=== PATIENT | male | born 1930 | race Caucasian/White ===

== ENCOUNTER 2016-10-29 14:19 | Outpatient (CLI) | payer MEDICARE, OTHER ==
[2016-10-29 14:55] LABS: #Basophils 0.1 thou/uL (0.0-0.2); #Eosinphils 0.2 thou/uL (0.0-0.7); #Lymphocytes 1.9 thou/uL (1.20-3.40); #Monocytes 0.7 thou/uL (0.11-0.59); #Neutrophils 5.2 thou/uL (1.40-6.50); %Basophils 1.1 % (0.0-1.0); %Eosinophils 2.5 % (0.0-10.0); %Lymphocytes 23.2 % (21.0-51.0); %Monocytes 8.9 % (0.0-10.0); %Neutrophils 64.3 % (42.0-75.0); Hemoglobin 14.8 g/dL (14.0-18.0); Mean Corpuscular HGB CONC 33.2 g/dL (32.0-36.0); Mean Corpuscular Hemoglobin 33.5 pg (27.0-31.0); Mean Corpuscular Volume 101.1 fl (80.0-94.0); Mean Platelet Volume 8.1 fL (7.4-10.4); Platelet Count 209 thou/uL (130-400); RBC Distribution Width 11.9 % (11.5-14.5); Red Blood Cell (RBC) Count 4.42 mill/uL (4.70-6.10); White Blood Cell (WBC) Count 8.1 thou/uL (4.8-10.8)
[2016-10-29 15:12] LABS: Anion Gap 15 mmol/L (10-20); BUN (Urea Nitrogen) 26 mg/dL (8.4-25.7); Calc. Creatinine Clearance 0 mL/min (70-130); Calcium 9.2 mg/dL (7.8-10.44); Carbon Dioxide 20 mmol/L (23-31); Chloride 110 mmol/L (98-107); Estimated GFR-MDRD 34; Glucose 112 mg/dL (83-110); Potassium 4.7 mmol/L (3.5-5.1); Sodium 140 mmol/L (136-145)
== END 2016-10-29 14:20 | disposition home or self-care (01) ==
LOC: MADLAB 14:19
PROVIDERS: ATTEND Internal Medicine Cardiovascular Disease
DX: I48.0 Paroxysmal atrial fibrillation (principal); R53.1 Weakness
CPT/HCPCS: 36415; 80048; 84443; 85025

== ENCOUNTER 2016-11-13 15:49 | Outpatient (CLI) | payer MEDICARE, OTHER ==
[2016-11-13 16:20] LABS: Clarity Hazy (Clear)
[2016-11-13 16:21] LABS: Bilirubin Negative (Negative); Blood, Urine Large (Negative); Glucose, Urine (Dipstick) Negative (Negative); Leukocyte Moderate (Negative); Nitrite Positive (Negative); Protein, Urine (Dipstick) Trace mg/dL (Neg-Trace); pH, Urine 6.5 (5.0-9.0)
[2016-11-13 16:26] LABS: Bacteria/HPF Rare-Few HPF (None Seen); WBC/HPF 21-50 HPF (0-3)
[2016-11-13 16:27] LABS: Hyaline Casts/LPF 0-3 HYALINE CAST LPF (0-3 Hyaline)
== END 2016-11-13 15:50 | disposition home or self-care (01) ==
LOC: MADLABBHPM 15:49
PROVIDERS: ATTEND Family Medicine
DX: R35.0 Frequency of micturition (principal)
CPT/HCPCS: 81001; 87077; 87086; 87186

== ENCOUNTER 2016-11-26 12:11 | Outpatient (CLI) | payer MEDICARE, OTHER ==
--- NOTE | 2016-11-26 16:15 | ULT ---
BILATERAL RENAL ULTRASOUND 11/26/16 HISTORY: Chronic renal disease. Recent infection. FINDINGS: The right kidney measures 10.5 cm in length and the left kidney measures 9 cm in length. There is a 1.2 x 0.9 x 1.6 cm cyst in the left kidney. No hydronephrosis is seen on either side. The urinary bladder is not satisfactorily distended on the prevoid images with a volume of 11.4 mL a nd a postvoid residual of 6 mL. IMPRESSION: Left renal cyst. POS: [facility]
== END 2016-11-26 12:12 | disposition home or self-care (01) ==
LOC: MADULT 12:11
PROVIDERS: ATTEND Internal Medicine Nephrology
DX: N18.3 Chronic kidney disease, stage 3 (moderate) (principal); N28.1 Cyst of kidney, acquired
CPT/HCPCS: 76770

== ENCOUNTER 2017-04-18 14:09 | Outpatient (CLI) | payer MEDICARE, OTHER ==
--- NOTE | 2017-04-18 15:56 | RAD ---
PA AND LATERAL CHEST: HISTORY: Cough. COMPARISON: 06/27/15 study. FINDINGS: Heart size is within normal limits. There are atherosclerotic changes of the aorta. The lungs show changes suggesting an element of COPD. Old rib fractures are present. IMPRESSION: Chronic lung change. Stable chest. POS: [facility]
== END 2017-04-18 14:10 | disposition home or self-care (01) ==
LOC: MADRAD 14:09
PROVIDERS: ATTEND Family Medicine
DX: R05 Cough (principal)
CPT/HCPCS: 71020

== ENCOUNTER 2017-05-29 15:31 | Emergency (ER) | payer MEDICARE, OTHER ==
--- NOTE | 2017-05-29 16:23 | RAD ---
FRONTAL RADIOGRAPH PELVIS: DATE: 05/29/17. COMPARISON: 01/12/14. HISTORY: Injury. FINDINGS: There is an old fracture involving the inferior and superior pubic rami medially on the left. Metall ic densities overlie the pubic symphysis suggesting radiation therapy beads within the prostate gland , stable as well. There is no widening of the pubic symphysis or the sacroiliac joints. The femoral heads project normally over their respective acetabulum. There is multilevel degenerative change se en within the lumbar spine with disk space narrowing and osteophyte formation. No acute fracture or dislocation is seen. IMPRESSION: Chronic findings as detailed above. No displaced fracture or dislocation. POS: [facility]
--- NOTE | 2017-05-29 16:29 | RAD ---
LUMBAR SPINE: DATE: 05/29/17. COMPARISON: 08/22/15. HISTORY: Pain, injury. FINDINGS: Five lumbar-type vertebral bodies are present with intact pedicles on frontal imaging. There is multilevel disk space narrowing with degenerative end plate change and osteophyte formation throughout the lumbar spine, most prominent at L1-2, L3-4, and L5-S1. There are multilevel degenerat rajesh changes noted within the facet joints of the lower lumbar spine, most prominent at the L4-5 level . There is no significant anterolisthesis or retrolisthesis. No discrete fracture is noted. IMPRESSION: Severe multilevel degenerative change within the lumbar spine, not significantly changed. No acute f racture is evident. POS: [facility]
--- NOTE | 2017-05-29 16:30 | RAD ---
TWO VIEWS OF THE SACRUM AND COCCYX: 05/29/17 COMPARISON: None. HISTORY: Injury. FINDINGS: There is an old fracture involving the superior and inferior pubic ramus on the left extending into t he region of the pubic symphysis. No displaced acute fracture. No widening of the sacroiliac joints o r the pubic symphysis. IMPRESSION: No acute displaced fracture or evidence of dislocation. If symptoms persists and there is concern for a radio-occult injury, CT examination of the area of concern may be beneficial. POS: [facility]
--- NOTE | 2017-05-29 17:03 | CT ---
CT BRAIN 05/29/17 HISTORY: Trauma and fall. Noncontrast enhanced CT images of the brain is obtained on 05/29/17. Comparison made to a previous exam from 04/09/16. CT brain demonstrates extensive periventricular, bilateral basal ganglia and dentate nucleus calcific ations. 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 No de finite evidence of acute intracranial masses or lesions seen. No evidence of hemorrhage is seen. The calvarium is intact. Diffuse cortical atrophy and deep white matter ischemic changes were also presen t. IMPRESSION: Symmetric chronic periventricular and basal ganglion calcifications, not significantly changed. No ev idence of acute intracranial pathology is seen. POS: [facility]
== END 2017-05-29 17:10 | disposition home or self-care (01) ==
LOC: MADERS 15:31
DX: S30.0XXA Contusion of lower back and pelvis, initial encounter (principal); I48.91 Unspecified atrial fibrillation; E78.5 Hyperlipidemia, unspecified; Z86.73 Personal history of transient ischemic attack (TIA), and cerebral infarction without residual deficits; Z79.899 Other long term (current) drug therapy; Z79.82 Long term (current) use of aspirin; W19.XXXA Unspecified fall, initial encounter
CPT/HCPCS: 70450; 72100; 72170; 72220

== ENCOUNTER 2017-06-06 16:36 | Outpatient (CLI) | payer MEDICARE, OTHER ==
[2017-06-06 16:55] LABS: Bilirubin Negative (Negative); Clarity Clear (Clear); Glucose, Urine (Dipstick) Negative (Negative); Leukocyte Negative (Negative); Nitrite Negative (Negative); Protein, Urine (Dipstick) Negative (Neg-Trace); pH, Urine 5.5 (5.0-9.0)
[2017-06-06 16:56] LABS: Blood, Urine Negative (Negative)
[2017-06-06 16:58] LABS: Bacteria/HPF Rare-Few HPF (None Seen); RBC/HPF 0-3 HPF (0-3); Squamous Epithelial 0-3 HPF (0-3); WBC/HPF None Seen HPF (0-3)
== END 2017-06-06 16:37 | disposition home or self-care (01) ==
LOC: MADLAB 16:36
PROVIDERS: ATTEND Urology
DX: Z85.46 Personal history of malignant neoplasm of prostate (principal)

== ENCOUNTER 2017-11-07 12:31 | Inpatient (IN) | payer MEDICARE, OTHER ==
[2017-11-07 13:56] VITALS: BMI 22.8
--- NOTE | 2017-11-07 19:37 | HP ---
Admitted to [facility] extended care on 11/07/2017. CHIEF COMPLAINT: Weakness. HISTORY OF PRESENT ILLNESS: The patient is a very pleasant 87-year-old white male who has a history of vascular dementia, hypertension, paroxysmal atrial fibrillation and cancer of the prostate. Yolis chow resides at home and is ordinarily ambulatory with the use of a walker and able to assist with all his ADLs. Lives with his who is his primary caregiver. The patient awoke early on the morning of 11/04/2017 and could not speak. His heard him mumbling and came to his assistance and found he could not speak. EMS was summoned and EMS had to lift him out of bed because he was so weak. He was taken to the emergency room and evaluated and transferred to [facility] for a stroke evaluation. Patient underwent CT scan of the brain. Did not show any evidence of hemor rhage. He underwent a CT angio of the [place] and was found to have 60% stenosis of the don[place] gin of the left internal carotid artery and he was found to have a clot in the proximal left middle c erebral artery. The patient was felt to be a good candidate for thrombolytics and was treated with T PA with excellent results. He had no complication and he had initially no focal weakness, but was ap hasic. Aphasia showed completely resolved. He was seen in consultation by the product manager medical device who said he had chronic atrial fibrillation and recommended that he will be on anticoagulants. The family de bated this because he has had several falls. Eventually, they have elected for him to go on [facility] due to the atrial fibrillation and now this most recent embolic CVA that fortunately was resp onsive to the TPA. The patient was placed on Eliquis 2.5 mg b.i.d. and also on his low dose aspirin. The patient was improving. He was not having trouble with his speech or swallowing. He was walkin g with a walker. He was still weak and still a fall risk. It was elected to send him to [facility] for physical therapy in an effort to try to improve his strength, his debility and i mprove his functional capability. I also hope to help with his balance and reduce his fall risk. Th e patient was seen at the hospital soon after his arrival. Patient was able to relay what had happen ed. Also, his , Maggie was able to review the history and his son, Michael was also in attendan ce and participated in the discussion. PAST HISTORY: Hospitalized at [facility] from 11/04/2017-11/07/2017 for embolic cerebrova scular accident presenting with aphasia that was responsive to TPA with resolution of the symptoms. Chronic atrial fibrillation for which he was just placed on anticoagulants with Eliquis during this m ost recent hospitalization; vascular dementia, hypertension, gait abnormality for which he uses a can e or walker, hyperlipidemia, generalized osteoarthritis particularly of the knees, right greater than left, constipation, cancer of the prostate for which he has undergone radiation therapy and brachyth erapy, history of thoracic compression fracture, coronary artery disease medically managed, history o f osteomyelitis treated with IV antibiotics for 8 weeks and then oral cephalexin, previous CVA for wh ich he has been spared any focal weakness, varicosities of the legs. Patient has had deep puncture w ound to the right knee that required expiration and cleaning, abdominal hernia repair, colon perforat ion and repair, prostate surgery for cancer of the prostate, overactive bladder. PRESENT MEDICINES: Multivitamin, Centrum one daily, Crestor 10 mg daily, donepezil 10 mg daily, Cola ce 10 mg daily, Namenda 10 mg b.i.d., calcium carbonate 600 mg daily, psyllium fiber 2 caps daily, My rbetriq 25 mg daily, glucosamine and chondroitin 1 daily, tamsulosin 0.4 mg at bedtime, diltiazem CD 240 mg daily, aspirin 81 mg daily, apixaban (Eliquis) 2.5 mg b.i.d. ALLERGIES: SOLPADEINE. REVIEW OF SYSTEMS: The patient has not any recent fevers. He has had no recent weight gain or loss. HEAD AND NECK: No complaints. PULMONARY: No shortness of breath. CARDIOVASCULAR: No chest pain . GASTROINTESTINAL: No nausea, vomiting or change in bowel habits. : No complaints. He says he does have an overactive bladder. Has to urinate frequently. Myrbetriq seems to help. ADLs: The patient able to ambulate with the walker, usually requires a little assistance for bathing and dressing, can feed himself. HABITS: Alcohol none. Tobacco none. SOCIAL HISTORY: The patient is . Lives with his who is his primary caregiver. CODE STATUS: FULL CODE. PHYSICAL EXAMINATION: GENERAL: Shows a very pleasant 87-year-old white male who is lying in bed. He is alert and talkativ e and appears in no distress. VITAL SIGNS: Shows temperature 98.2, pulse 75, respirations 18, O2 sat 97% on room air, blood pressu re 122/61, weight 168. HEAD: Normocephalic and atraumatic. EYES: Pupils were equal, round, and reactive. Sclerae nonicteric. EARS: There is some cerumen occluding the TMs. NOSE: Normal. MOUTH AND THROAT: Normal. NECK: Carotids are equal and strong, no bruits. Thyroid not enlarged. LUNGS: Clear. HEART: Regular rate. No murmurs. ABDOMEN: Soft, no organomegaly, nor areas of tenderness. EXTREMITIES: No edema. SKIN: No rash. There is a small bruise below the left mandible. NEUROLOGIC: Patient is alert. Knows he is in the hospital and understands that he recently had a st roke. He knows he is in [place], recognizes me and his and son. Patient has good muscle s trength equally throughout. There is no focal weakness. Cranial nerves II-XII grossly intact. IMPRESSION: 1. Weakness, generalized. A. Complicated by gait abnormality within that ordinarily stabilized with a walker. B. Increased fall risk. 2. Embolic cerebrovascular accident. A. Presenting on 11/04/2017 with aphasia and found to have a clot in the left middle cerebral artery that was successfully treated with TPA leaving him with no focal weakness. 3. History of previous cerebrovascular accident. 4. Vascular dementia. 5. Hypertension. 6. Hyperlipidemia. 7. Chronic atrial fibrillation. A. Rate controlled. Presently it sounds as if he has an irregular rhythm. B. Anticoagulation with Eliquis 2.5 mg b.i.d. initiated on 11/06/2017. 8. Coronary artery disease. A. Medically managed. 9. Overactive bladder. 10. Cancer of the prostate. A. History of radiation therapy and brachytherapy. 11. Chronic kidney disease, moderate. 12. Generalized osteoarthritis. PLAN: The patient has been admitted to [facility] to extended care for purpose of physical the rapy in the hopes to improve his general strength, his conditioning, improve his gait and reduce his fall risk. We will continue his routine medication. The patient is a DNR. We will continue the Evon pavan.
[2017-11-07] MEDS: Tamsulosin HCl 0.4 MG CAP PO SCH (21:20)
[2017-11-07] MEDS: Apixaban 5 MG TAB PO SCH (21:20)
[2017-11-07] MEDS: Donepezil HCl 10 MG TAB PO SCH (21:21)
[2017-11-08 05:34] LABS: #Basophils 0.1 thou/uL (0.0-0.2); #Eosinphils 0.2 thou/uL (0.0-0.7); #Lymphocytes 1.9 thou/uL (1.20-3.40); #Monocytes 0.7 thou/uL (0.11-0.59); #Neutrophils 3.6 thou/uL (1.40-6.50); %Basophils 1.2 % (0.0-1.0); %Eosinophils 2.7 % (0.0-10.0); %Lymphocytes 29.7 % (21.0-51.0); %Monocytes 11.2 % (0.0-10.0); %Neutrophils 55.2 % (42.0-75.0); Hemoglobin 12.7 g/dL (14.0-18.0); Mean Corpuscular HGB CONC 34.9 g/dL (32.0-36.0); Mean Corpuscular Hemoglobin 33.4 pg (27.0-31.0); Mean Corpuscular Volume 95.6 fL (78.0-98.0); Mean Platelet Volume 7.9 fL (7.4-10.4); Platelet Count 153 thou/uL (130-400); RBC Distribution Width 11.3 % (11.5-14.5); Red Blood Cell (RBC) Count 3.81 mill/uL (4.70-6.10); White Blood Cell (WBC) Count 6.5 thou/uL (4.8-10.8)
[2017-11-08 05:40] LABS: AST (SGOT) 21 U/L (5-34); Albumin 3.3 g/dL (3.4-4.8); Alkaline Phosphatase 63 U/L (40-150); Anion Gap 16 mmol/L (10-20); BUN (Urea Nitrogen) 18 mg/dL (8.4-25.7); Bilirubin, Total 0.7 mg/dL (0.2-1.2); Calc. Creatinine Clearance 43 mL/min (70-130); Calcium 8.8 mg/dL (7.8-10.44); Carbon Dioxide 20 mmol/L (23-31); Chloride 110 mmol/L (98-107); Estimated GFR-MDRD 52; Globulin 2.4 g/dL (2.4-3.5); Glucose 90 mg/dL (83-110); Potassium 3.7 mmol/L (3.5-5.1); Protein, Total 5.7 g/dL (5.8-8.1); Sodium 142 mmol/L (136-145)
[2017-11-08 05:47] LABS: ALT (SGPT) 10 U/L (8-55)
[2017-11-08] MEDS: Rosuvastatin 10 MG TAB PO SCH (08:11)
[2017-11-08] MEDS: Vit A,C & E/Lutein/Minerals Tablet PO SCH (08:11)
[2017-11-08] MEDS: Docusate 100 MG CAP PO SCH (08:12)
[2017-11-08] MEDS: Apixaban 5 MG TAB PO SCH ×2 (08:12→20:03)
[2017-11-08] MEDS: Metamucil PACK PO SCH (08:13)
[2017-11-08] MEDS: GLUCOSAMINE SULF PO SCH (08:23)
[2017-11-08] MEDS: CALCIUM CARBONATE 600 MG PO SCH (08:23)
[2017-11-08] MEDS: CHONDROITIN A PO SCH (08:23)
[2017-11-08] MEDS: Donepezil HCl 10 MG TAB PO SCH (20:02)
[2017-11-08] MEDS: Tamsulosin HCl 0.4 MG CAP PO SCH (20:03)
[2017-11-09] MEDS: Docusate 100 MG CAP PO SCH (08:14)
[2017-11-09] MEDS: Vit A,C & E/Lutein/Minerals Tablet PO SCH (08:14)
[2017-11-09] MEDS: Apixaban 5 MG TAB PO SCH ×2 (08:14→20:40)
[2017-11-09] MEDS: Rosuvastatin 10 MG TAB PO SCH (08:14)
[2017-11-09] MEDS: Metamucil PACK PO SCH (08:14)
[2017-11-09] MEDS: CALCIUM CARBONATE 600 MG PO SCH (08:15)
[2017-11-09] MEDS: CHONDROITIN A PO SCH (08:15)
[2017-11-09] MEDS: GLUCOSAMINE SULF PO SCH (08:15)
[2017-11-09] MEDS: Tamsulosin HCl 0.4 MG CAP PO SCH (20:40)
[2017-11-09] MEDS: Donepezil HCl 10 MG TAB PO SCH (20:40)
[2017-11-09] MEDS: Acetaminophen 325 MG TAB PO PRN (20:42)
--- NOTE | 2017-11-10 07:56 | PRG ---
DATE OF SERVICE: 11/08/2017 SUBJECTIVE: The patient says he did not rest too well during the night due to several disturbance. He is feeling alright. He is not having any pain or any weakness. His son stayed with him. OBJECTIVE: GENERAL: The patient is alert, talkative, appears very comfortable in no distress. VITAL SIGNS: His temperature is 97.8, pulse 77, respirations 20, O2 sat 95% on room air, and blood p ressure 151/69. LUNGS: Clear. HEART: Regular rate. NEUROLOGIC: The patient is alert, talkative. He has excellent muscle strength with symmetric throug hout. There is no focal weakness. LABORATORY DATA: His labs shows an H&H of 12.7 and 36.4 with a white cell count of 6400 with 55% seg s, 30% lymphocytes, and platelet count of 153,000. Sodium 142, potassium 3.7, BUN 18, creatinine 1.3 , estimated GFR 52. Albumin 3.3. ASSESSMENT: 1. Weakness, generalized. A. Complicated by gait abnormality within that ordinarily stabilized with a walker. B. Increased fall risk. C. Improved, able to ambulate the use of a walker and standby assistance but still remains he has fa ll risk as of 11/08/2017. 2. Embolic cerebrovascular accident. A. Presenting on 11/04/2017 with aphasia and found to have a clot in the left middle cerebral artery that was successfully treated with TPA leaving him with no focal weakness. B. Neurologically remained stable with no focal weakness as of 11/08/2017. 3. History of previous cerebrovascular accident. 4. Vascular dementia. 5. Hypertension. A. Controlled as of 11/08/2017. 6. Hyperlipidemia. 7. Chronic atrial fibrillation. A. Rate controlled. Presently it sounds as if he has an irregular rhythm. B. Anticoagulation with Eliquis 2.5 mg b.i.d. initiated on 11/06/2017. 8. Coronary artery disease. A. Medically managed. 9. Overactive bladder. 10. Cancer of the prostate. A. History of radiation therapy and brachytherapy. 11. Chronic kidney disease, moderate. 12. Generalized osteoarthritis. PLAN: Continue present care. Continue physical therapy.
[2017-11-10] MEDS: Rosuvastatin 10 MG TAB PO SCH (08:34)
[2017-11-10] MEDS: Docusate 100 MG CAP PO SCH (08:35)
[2017-11-10] MEDS: Apixaban 5 MG TAB PO SCH ×2 (08:35→20:41)
[2017-11-10] MEDS: Vit A,C & E/Lutein/Minerals Tablet PO SCH (08:35)
[2017-11-10] MEDS: Metamucil PACK PO SCH (08:36)
[2017-11-10] MEDS: GLUCOSAMINE SULF PO SCH (08:36)
[2017-11-10] MEDS: CHONDROITIN A PO SCH (08:36)
[2017-11-10] MEDS: CALCIUM CARBONATE 600 MG PO SCH (08:37)
--- NOTE | 2017-11-10 13:00 | PRG ---
DATE OF SERVICE: 11/10/2017 SUBJECTIVE: The patient has no complaints. Yesterday he walked some with his family without any pro blem. OBJECTIVE: The patient is alert, appears very comfortable in no distress. His temp 97.2, pulse 67, respirations 18, O2 sat 96% on room air, blood pressure 115/58. Lungs are clear. Heart, regular rat e. Neurologic, the patient is alert, has no focal weakness. ASSESSMENT: 1. Weakness, generalized. A. Complicated by gait abnormality within that ordinarily stabilized with a walker. B. Increased fall risk. C. Improved, ambulating with a rolling walker and standby assistance as of 11/10/2017. 2. Embolic cerebrovascular accident. A. Presenting on 11/04/2017 with aphasia and found to have a clot in the left middle cerebral artery that was successfully treated with TPA leaving him with no focal weakness. B. Presently alert with no focal weakness as of 11/10/2017. 3. History of previous cerebrovascular accident. 4. Vascular dementia. 5. Hypertension. 6. Hyperlipidemia. 7. Chronic atrial fibrillation. A. Rate controlled. Presently it sounds as if he has an irregular rhythm. B. Anticoagulation with Eliquis 2.5 mg b.i.d. initiated on 11/06/2017. 8. Coronary artery disease. A. Medically managed. 9. Overactive bladder. 10. Cancer of the prostate. A. History of radiation therapy and brachytherapy. 11. Chronic kidney disease, moderate. 12. Generalized osteoarthritis. PLAN: Continue present care. Continue physical therapy.
[2017-11-10] MEDS: Tamsulosin HCl 0.4 MG CAP PO SCH (20:41)
[2017-11-10] MEDS: Donepezil HCl 10 MG TAB PO SCH (20:41)
[2017-11-11] MEDS: Acetaminophen 325 MG TAB PO PRN ×2 (03:08→20:27)
[2017-11-11] MEDS: Apixaban 5 MG TAB PO SCH ×2 (09:08→20:23)
[2017-11-11] MEDS: Docusate 100 MG CAP PO SCH (09:10)
[2017-11-11] MEDS: Metamucil PACK PO SCH (09:11)
[2017-11-11] MEDS: Rosuvastatin 10 MG TAB PO SCH (09:11)
[2017-11-11] MEDS: Vit A,C & E/Lutein/Minerals Tablet PO SCH (09:12)
--- NOTE | 2017-11-11 14:56 | PRG ---
DATE OF SERVICE: 11/11/2017 SUBJECTIVE: The patient is doing good. He had no complaints this morning. His is with him and said he is still have a little balance problem and a little trouble transferring. He has been worki ng well with physical therapy and is walking up to 150 feet twice a day with a rolling walker and sta ndby assistance. He is needing a little bit of help with transfer. His balance is improving. OBJECTIVE: The patient was getting up out of bed, needing a little assistance to sit up on the edge of the bed. He is alert and appears very comfortable in no distress. His temperature is 98.3, pulse 75, respirations 18, O2 sat 93% on room air, blood pressure 113/53. His lungs are clear. Heart, re gular rate. Extremities; no edema. Neurologic; there is no focal weakness. ASSESSMENT: 1. Weakness, generalized. A. Complicated by gait abnormality within that ordinarily stabilized with a walker. B. Improved, ambulating up to 150 two times a day, needing just minimal assistance with transfer, garfield roper improving as of 11/11/2017. C. Improved, ambulating with a rolling walker and standby assistance as of 11/10/2017. 2. Embolic cerebrovascular accident. A. Presenting on 11/04/2017 with aphasia and found to have a clot in the left middle cerebral artery that was successfully treated with TPA leaving him with no focal weakness. B. Stable with no focal weakness as of 11/11/2017. 3. History of previous cerebrovascular accident. 4. Vascular dementia. 5. Hypertension. A. Controlled as of 11/11/2017. 6. Hyperlipidemia. 7. Chronic atrial fibrillation. A. Rate controlled. Presently it sounds as if he has an irregular rhythm. B. Anticoagulation with Eliquis 2.5 mg b.i.d. initiated on 11/06/2017. 8. Coronary artery disease. A. Medically managed. 9. Overactive bladder. 10. Cancer of the prostate. A. History of radiation therapy and brachytherapy. 11. Chronic kidney disease, moderate. 12. Generalized osteoarthritis. PLAN: The patient is doing excellent. He is making good progress. Will continue the physical thera py.
[2017-11-11] MEDS: Donepezil HCl 10 MG TAB PO SCH (20:23)
[2017-11-11] MEDS: Tamsulosin HCl 0.4 MG CAP PO SCH (20:23)
[2017-11-12] MEDS: Rosuvastatin 10 MG TAB PO SCH (08:28)
[2017-11-12] MEDS: Apixaban 5 MG TAB PO SCH ×2 (08:28→20:38)
[2017-11-12] MEDS: Vit A,C & E/Lutein/Minerals Tablet PO SCH (08:29)
[2017-11-12] MEDS: Docusate 100 MG CAP PO SCH (08:29)
[2017-11-12] MEDS: Metamucil PACK PO SCH (08:29)
--- NOTE | 2017-11-12 14:06 | PRG ---
DATE OF SERVICE: 11/12/2017 SUBJECTIVE: The patient said he is doing good. He is working with physical therapy. This morning, he has already been up walking with his rolling walker and dental front office assistant. He is walking up to 200 feet w ith a rolling walker and minimal standby assistance. He requires minimal assistance with transfer, s till a little bit unsteady on his feet with transfer, but improving. OBJECTIVE: The patient is alert. He is standing, holding onto his walker. He walks with little samy rt steps. He appears in no distress. His temperature is 97.4, pulse 71, respirations 20, O2 sat 95% on room air, blood pressure 122/58. Lungs are clear. Heart, regular rate. Extremities, no edema. ASSESSMENT: 1. Weakness, generalized. A. Complicated by gait abnormality within that ordinarily stabilized with a walker. B. Improved, ambulating up to 150 two times a day, needing just minimal assistance with transfer, ba judson improving as of 11/11/2017. C. Improved, ambulating with a rolling walker and standby assistance as of 11/10/2017. 2. Embolic cerebrovascular accident. A. Presenting on 11/04/2017 with aphasia and found to have a clot in the left middle cerebral artery that was successfully treated with TPA leaving him with no focal weakness. B. Stable with no focal weakness as of 11/11/2017. 3. History of previous cerebrovascular accident. 4. Vascular dementia. 5. Hypertension. A. Controlled as of 11/11/2017. 6. Hyperlipidemia. 7. Chronic atrial fibrillation. A. Rate controlled. Presently it sounds as if he has an irregular rhythm. B. Anticoagulation with Eliquis 2.5 mg b.i.d. initiated on 11/06/2017. 8. Coronary artery disease. A. Medically managed. 9. Overactive bladder. 10. Cancer of the prostate. A. History of radiation therapy and brachytherapy. 11. Chronic kidney disease, moderate. 12. Generalized osteoarthritis. PLAN: Continue physical therapy. The patient will be given a pass so that he can attend his sister- in-law's this afternoon. He will have adequate help to ensure his safety.
[2017-11-12] MEDS: Tamsulosin HCl 0.4 MG CAP PO SCH (20:38)
[2017-11-12] MEDS: Donepezil HCl 10 MG TAB PO SCH (20:38)
[2017-11-12] MEDS: Acetaminophen 325 MG TAB PO PRN (20:40)
[2017-11-13 05:42] LABS: Hemoglobin 12.5 g/dL (14.0-18.0); Platelet Count 179 thou/uL (130-400)
[2017-11-13] MEDS: Rosuvastatin 10 MG TAB PO SCH (08:36)
[2017-11-13] MEDS: Docusate 100 MG CAP PO SCH (08:36)
[2017-11-13] MEDS: Metamucil PACK PO SCH (08:36)
[2017-11-13] MEDS: Apixaban 5 MG TAB PO SCH ×2 (08:36→20:36)
[2017-11-13] MEDS: Vit A,C & E/Lutein/Minerals Tablet PO SCH (08:36)
[2017-11-13] MEDS: Donepezil HCl 10 MG TAB PO SCH (20:35)
[2017-11-13] MEDS: Tamsulosin HCl 0.4 MG CAP PO SCH (20:36)
[2017-11-13] MEDS: Acetaminophen 325 MG TAB PO PRN (20:39)
[2017-11-14 07:29] VITALS: BP 140/64; TEMP 97.1
[2017-11-14] MEDS: Apixaban 5 MG TAB PO SCH (08:28)
[2017-11-14] MEDS: Rosuvastatin 10 MG TAB PO SCH (08:29)
[2017-11-14] MEDS: Metamucil PACK PO SCH (08:29)
[2017-11-14] MEDS: Docusate 100 MG CAP PO SCH (08:29)
[2017-11-14] MEDS: Vit A,C & E/Lutein/Minerals Tablet PO SCH (08:29)
--- NOTE | 2017-11-14 14:23 | DIS ---
FINAL DIAGNOSES: 1. Weakness, generalized. A. Complicated by gait abnormality within that ordinarily stabilized with a walker. B. Improved. Ambulating up to 150 feet 2 times a day with a rolling walker and standby assistance. Still needs some assistance with transfers and still has some trouble with balance, but improved as of 11/14/2017. 2. Embolic cerebrovascular accident. A. Presenting on 11/04/2017 with aphasia and found to have a clot in the left middle cerebral artery that was successfully treated with TPA leaving him with no focal weakness. B. Stable with no focal weakness as of 11/11/2017. 3. History of previous cerebrovascular accident. 4. Vascular dementia. 5. Hypertension. A. Controlled as of 11/11/2017. 6. Hyperlipidemia. 7. Chronic atrial fibrillation. A. Rate controlled. Presently it sounds as if he has an irregular rhythm. B. Anticoagulation with Eliquis 2.5 mg b.i.d. initiated on 11/06/2017. 8. Coronary artery disease. A. Medically managed. 9. Overactive bladder. 10. Cancer of the prostate. A. History of radiation therapy and brachytherapy. 11. Chronic kidney disease stage 2. A. GFR 67 as of 11/13/2017. 12. Generalized osteoarthritis. REASON FOR ADMISSION: The patient is a pleasant 87-year-old white male who has a history of a vascul ar dementia, hypertension, paroxysmal atrial fibrillation and cancer of the prostate. He resides at his home where his serves as his primary caregiver and also they have a lady that comes in to as sist with his care. The patient was hospitalized at [facility] in [place] from 11/04/2017 u [facility] 11/07/2017. On the morning of admission, he had woke up and was having difficulty with speech a nd seemed weaker than usual. He was found to have evidence of a stroke presenting with aphasia. His CT scan did not show any evidence of hemorrhage. CT angio of [place] showed a 60% sten osis of the origin of the left internal carotid and was found to have a clot in the distribution of t he right middle cerebral artery. The patient was thought to be a good candidate for t-PA which was alin treviño. The patient had no problem from the t-PA and had excellent results with resolution of the apha emile. The patient was left with no focal weakness. He did have still some just generalized deconditi oning and weakness and was a little unsteady on his feet. During his hospitalization, the cardiologi st saw him and because of his embolic CVA recommended that he go on anticoagulation with a history of the paroxysmal atrial fibrillation. The family considered this and upon their recommendations agree and the patient was placed on Eliquis 2.5 mg b.i.d. and also on his low dose aspirin. The patient w as moved to [facility] for continued rehabilitation on 11/07/2017. On his initial examination, he was found to have some generalized weakness and deconditioning, had difficulty with transferring and was a little unsteady on his feet. During his hospital stay he made excellent progress with his physical therapy. Eventually, he was able to walk up to 150 feet twice a day with a rolling walker a nd standby assistance. He had kind of a little short steppage shuffling gait and was a little unstea dy on turning. With standby assistance he did very well. He still required some assistance with a t ransfer. The patient made very excellent progress. His heart rate during his hospitalization was ve ry regular and rate controlled. He continued on the aspirin and on the Eliquis without any problems. His lab work from 11/13/2017 showed that his creatinine had dropped from the admission of 1.3 to 1. 05 and the GFR improved from admission of 52 to 67 on 11/13/2017. His H&H on 11/13/2017 was 12.5 and 35.9, which was stable from admission and platelet count 179. The patient did very well, had no com plaints and was anxious to go home. I visited with patient and his , Maggie, and weighed the options of further physical therapy versus going home. The patient and his have opted to go radhames e. They have a caregiver that comes 7 days a week that assist him. He has a walk-in tub and safety devices in the bathroom and safety railing. His interim home health was seeing him and they will pic k back up on his care and arrange for in-home PT and OT. The patient was discharged in [facility] on 11/14/2017. DISPOSITION: DIET: Regular diet. No added salt. ACTIVITIES: Ambulate with the use of a walker and standby assistance. The patient should not ambula te independently. Home Health will see patient with interim service and arrange for in-home PT and O T. MEDICATIONS: Acetaminophen 325 mg 2 every 6 hours as needed, Eliquis 2.5 mg b.i.d., aspirin 81 mg da berkley, Cardizem-CD 240 mg daily, docusate sodium 100 mg daily, donepezil 10 mg daily, Namenda 10 mg b.i .d., Myrbetriq 25 mg daily, Ocuvite with Lutein 1 daily, Metamucil 1 pack in a glass of water daily, rosuvastatin 10 mg daily, tamsulosin 0.4 mg at bedtime. FOLLOW UP: The patient will be seen in followup in my office in 2 weeks. Prior to that visit he carine l need a CBC and basic metabolic panel and lipid and liver panel. CODE STATUS: Full code.
== END 2017-11-14 14:02 | disposition home health service (06) | DRG 948 ==
LOC: MADMS 13:11
PROVIDERS: ADMIT Family Medicine; ATTEND Family Medicine
DX: R53.1 Weakness (principal); F01.50 Vascular dementia, unspecified severity, without behavioral disturbance, psychotic disturbance, mood disturbance, and anxiety; I48.0 Paroxysmal atrial fibrillation; I48.2 Chronic atrial fibrillation; Z79.01 Long term (current) use of anticoagulants; E78.5 Hyperlipidemia, unspecified; M17.0 Bilateral primary osteoarthritis of knee; Z86.73 Personal history of transient ischemic attack (TIA), and cerebral infarction without residual deficits; Z91.81 History of falling; I25.10 Atherosclerotic heart disease of native coronary artery without angina pectoris; N32.81 Overactive bladder; Z66 Do not resuscitate; I12.9 Hypertensive chronic kidney disease with stage 1 through stage 4 chronic kidney disease, or unspecified chronic kidney disease; C61 Malignant neoplasm of prostate; N18.2 Chronic kidney disease, stage 2 (mild); R26.81 Unsteadiness on feet
CPT/HCPCS: 36415; 80053; 82565; 85014; 85018; 85025; 85049; G8984-GO-CK; G8985-GO-CI

== ENCOUNTER 2017-11-27 12:11 | Outpatient (CLI) | payer MEDICARE, OTHER ==
[2017-11-27 12:53] LABS: Mean Corpuscular Hemoglobin 32.1 pg (27.0-31.0); Mean Corpuscular Volume 97.3 fL (78.0-98.0); Mean Platelet Volume 8.1 fL (7.4-10.4); Platelet Count 192 thou/uL (130-400); RBC Distribution Width 11.6 % (11.5-14.5); Red Blood Cell (RBC) Count 4.06 mill/uL (4.70-6.10); White Blood Cell (WBC) Count 6.2 thou/uL (4.8-10.8)
[2017-11-27 13:03] LABS: ALT (SGPT) 9 U/L (8-55); AST (SGOT) 16 U/L (5-34); Albumin 3.6 g/dL (3.4-4.8); Alkaline Phosphatase 67 U/L (40-150); Anion Gap 12 mmol/L (10-20); BUN (Urea Nitrogen) 19 mg/dL (8.4-25.7); Bilirubin, Direct 0.2 mg/dL (0.1-0.3); Bilirubin, Total 0.6 mg/dL (0.2-1.2); Calc. Creatinine Clearance 0 mL/min (70-130); Calcium 9.1 mg/dL (7.8-10.44); Carbon Dioxide 22 mmol/L (23-31); Cardiac Risk 2.7 (Less than 4.5); Chloride 110 mmol/L (98-107); Cholesterol 125 mg/dl (< 200 Desired); Estimated GFR-MDRD 44; Glucose 100 mg/dL (83-110); HDL Cholesterol 47 mg/dL (>60 Neg Risk); LDL Cholesterol, Calculated 55 mg/dL; Potassium 4.4 mmol/L (3.5-5.1); Protein, Total 6.3 g/dL (5.8-8.1); Sodium 140 mmol/L (136-145); Triglycerides 114 mg/dL (Less than 150)
== END 2017-11-27 12:12 | disposition home or self-care (01) ==
LOC: MADLABBHPM 12:11
PROVIDERS: ATTEND Family Medicine
DX: E78.5 Hyperlipidemia, unspecified (principal); D75.89 Other specified diseases of blood and blood-forming organs; F03.90 Unspecified dementia, unspecified severity, without behavioral disturbance, psychotic disturbance, mood disturbance, and anxiety; I48.0 Paroxysmal atrial fibrillation; K59.00 Constipation, unspecified; I12.9 Hypertensive chronic kidney disease with stage 1 through stage 4 chronic kidney disease, or unspecified chronic kidney disease; N18.3 Chronic kidney disease, stage 3 (moderate); I73.9 Peripheral vascular disease, unspecified; M19.90 Unspecified osteoarthritis, unspecified site; R26.9 Unspecified abnormalities of gait and mobility
CPT/HCPCS: 36415; 80048; 80061; 80076; 85027

== ENCOUNTER 2018-01-08 11:56 | Outpatient (CLI) | payer MEDICARE, OTHER ==
[2018-01-08 13:01] LABS: #Eosinphils 0.2 thou/uL (0.0-0.7); #Lymphocytes 1.5 thou/uL (1.20-3.40); #Monocytes 0.6 thou/uL (0.11-0.59); #Neutrophils 4.1 thou/uL (1.40-6.50); %Basophils 0.7 % (0.0-1.0); %Eosinophils 3.7 % (0.0-10.0); %Lymphocytes 23.4 % (21.0-51.0); %Neutrophils 63.1 % (42.0-75.0); Hemoglobin 12.3 g/dL (14.0-18.0); Mean Corpuscular HGB CONC 33.3 g/dL (32.0-36.0); Mean Corpuscular Hemoglobin 32.2 pg (27.0-31.0); Mean Corpuscular Volume 96.7 fL (78.0-98.0); Mean Platelet Volume 7.4 fL (7.4-10.4); Platelet Count 173 thou/uL (130-400); RBC Distribution Width 11.8 % (11.5-14.5); Red Blood Cell (RBC) Count 3.81 mill/uL (4.70-6.10); White Blood Cell (WBC) Count 6.5 thou/uL (4.8-10.8)
== END 2018-01-08 11:57 | disposition home or self-care (01) ==
LOC: MADLAB 11:56
PROVIDERS: ATTEND Internal Medicine Gastroenterology
DX: D64.9 Anemia, unspecified (principal)
CPT/HCPCS: 85025

== ENCOUNTER 2018-02-10 03:19 | Emergency (ER) | payer MEDICARE, OTHER ==
[2018-02-10 04:06] LABS: Anion Gap 13 mmol/L (10-20); BUN (Urea Nitrogen) 23 mg/dL (8.4-25.7); Calc. Creatinine Clearance 0 mL/min (70-130); Calcium 9.5 mg/dL (7.8-10.44); Carbon Dioxide 23 mmol/L (23-31); Chloride 111 mmol/L (98-107); Estimated GFR-MDRD 39; Glucose 91 mg/dL (83-110); Sodium 143 mmol/L (136-145)
[2018-02-10 04:14] LABS: CKMB 1.1 ng/mL (0-6.6); Troponin I 0.013 ng/mL (< 0.028)
[2018-02-10 04:15] LABS: #Eosinphils 0.5 thou/uL (0.0-0.7); #Lymphocytes 1.6 thou/uL (1.20-3.40); #Monocytes 0.6 thou/uL (0.11-0.59); #Neutrophils 3.9 thou/uL (1.40-6.50); %Basophils 0.7 % (0.0-1.0); %Eosinophils 7.4 % (0.0-10.0); %Lymphocytes 24.8 % (21.0-51.0); %Monocytes 8.5 % (0.0-10.0); %Neutrophils 58.6 % (42.0-75.0); Hemoglobin 12.7 g/dL (14.0-18.0); Mean Corpuscular Volume 97.2 fL (78.0-98.0); Mean Platelet Volume 8.4 fL (7.4-10.4); Platelet Count 165 thou/uL (130-400); RBC Distribution Width 12.1 % (11.5-14.5); Red Blood Cell (RBC) Count 3.85 mill/uL (4.70-6.10); White Blood Cell (WBC) Count 6.6 thou/uL (4.8-10.8)
[2018-02-10 05:59] LABS: Bilirubin Negative (Negative); Blood, Urine Negative (Negative); Clarity Clear (Clear); Glucose, Urine (Dipstick) Negative (Negative); Leukocyte Negative (Negative); Nitrite Negative (Negative); Protein, Urine (Dipstick) Negative (Neg-Trace); Urobilinogen 0.2 mg/dL (0.2-1.0); pH, Urine 5.5 (5.0-9.0)
[2018-02-10] MEDS ORDERED: Sodium Chloride 0.9% 1,000 ML BAG ONE (07:16)
--- NOTE | 2018-02-10 07:23 | CT ---
CT BRAIN WITHOUT IV CONTRAST: Date: 02/10/18 INDICATION: 88-year-old male with altered mental status and weakness. Concern for possible intracerebral bleed. COMPARISON: Prior study dated 11/04/17. FINDINGS: There is stable generalized cerebral and cerebellar atrophy. The extensive periventricular and basal ganglia calcifications appear similar. Calcifications of the thalami, as well as the cerebellar nucle i, appear similar. No acute infarct, hemorrhage, or hydrocephalus is present. Septum pellucidum and t hird ventricle are midline. Mastoid air cells are clear. Paranasal sinuses are clear. Skull is intact . IMPRESSION: No acute intracranial abnormality. Chronic findings as above. POS: [facility]
== END 2018-02-10 06:55 | disposition home or self-care (01) ==
LOC: MADERS 03:19
DX: I95.9 Hypotension, unspecified (principal); E86.9 Volume depletion, unspecified; F03.90 Unspecified dementia, unspecified severity, without behavioral disturbance, psychotic disturbance, mood disturbance, and anxiety; I48.91 Unspecified atrial fibrillation; E78.5 Hyperlipidemia, unspecified; Z86.73 Personal history of transient ischemic attack (TIA), and cerebral infarction without residual deficits
CPT/HCPCS: 36415; 51701; 70450; 80048; 81003; 82553; 83605; 84484; 85025; 87040; 87086; 93005; 94760; 96360; 96361; J7050

== ENCOUNTER 2018-02-20 13:46 | Emergency (ER) | payer MEDICARE, OTHER ==
[~2018-02-20 13:46] MED LIST: Sodium Chloride 0.9% 1,000 ML BAG ONE
[2018-02-20] MEDS ORDERED: Famotidine In NaCl 20 mg/50 ml Premix Bag ONE (14:10)
[2018-02-20 14:31] LABS: #Eosinphils 0.3 thou/uL (0.0-0.7); #Lymphocytes 1.2 thou/uL (1.20-3.40); #Monocytes 0.5 thou/uL (0.11-0.59); #Neutrophils 3.6 thou/uL (1.40-6.50); %Basophils 0.7 % (0.0-1.0); %Eosinophils 4.6 % (0.0-10.0); %Lymphocytes 21.5 % (21.0-51.0); %Neutrophils 64.2 % (42.0-75.0); Hemoglobin 12.6 g/dL (14.0-18.0); Mean Corpuscular Hemoglobin 33.2 pg (27.0-31.0); Mean Corpuscular Volume 97.7 fL (78.0-98.0); Mean Platelet Volume 9.1 fL (7.4-10.4); Platelet Count 179 thou/uL (130-400); RBC Distribution Width 12.1 % (11.5-14.5); White Blood Cell (WBC) Count 5.6 thou/uL (4.8-10.8)
[2018-02-20 14:45] LABS: ALT (SGPT) 14 U/L (8-55); AST (SGOT) 18 U/L (5-34); Albumin 3.6 g/dL (3.4-4.8); Alkaline Phosphatase 80 U/L (40-150); Anion Gap 14 mmol/L (10-20); BUN (Urea Nitrogen) 21 mg/dL (8.4-25.7); Bilirubin, Total 0.8 mg/dL (0.2-1.2); CK (CPK) 63 U/L (30-200); Calc. Creatinine Clearance 0 mL/min (70-130); Calcium 9.3 mg/dL (7.8-10.44); Carbon Dioxide 21 mmol/L (23-31); Chloride 110 mmol/L (98-107); Estimated GFR-MDRD 35; Globulin 2.7 g/dL (2.4-3.5); Glucose 108 mg/dL (83-110); Potassium 4.1 mmol/L (3.5-5.1); Protein, Total 6.3 g/dL (5.8-8.1); Sodium 141 mmol/L (136-145)
--- NOTE | 2018-02-20 14:46 | RAD ---
PORTABLE CHEST 1 VIEW: Date: 02/20/18 Time: 1412 hours HISTORY: Dyspnea. FINDINGS: Comparison made with exam of 02/17/18. The heart size is borderline. The aorta is tortuous. Chronic changes are again seen in the lung field s bilaterally. No focal areas of consolidation, pneumothoraces, or pleural effusions are identified. Old fractures and chest wall deformities are stable. IMPRESSION: No acute process. POS: [facility]
[2018-02-20 14:51] LABS: CKMB 1.2 ng/mL (0-6.6); Troponin I Less than 0.010 ng/mL (< 0.028)
[2018-02-20 15:43] LABS: Bilirubin Small (Negative); Blood, Urine Negative (Negative); Glucose, Urine (Dipstick) Negative (Negative); Leukocyte Negative (Negative); Nitrite Negative (Negative); Protein, Urine (Dipstick) Trace mg/dL (Neg-Trace); Urobilinogen 0.2 mg/dL (0.2-1.0); pH, Urine 5.5 (5.0-9.0)
[2018-02-20 15:47] LABS: Clarity Hazy (Clear)
[2018-02-20 15:48] LABS: Specific Gravity, Urine 1.025 (1.002-1.036)
[2018-02-20] MEDS ORDERED: cefTRIAXone\\ROCEPHIN 1 GM VIAL ONE (15:53)
--- NOTE | 2018-02-20 16:05 | CT ---
CT HEAD NONCONTRAST 02/20/18 HISTORY: Altered mental status. COMPARISON: 02/10/18. FINDINGS: There is no evidence of acute intracranial hemorrhage or infarct. Diffuse cortical a trophy and chron ic ischemic small vessel disease are again demonstrated. The extensive dystrophic calcification throu ghout the basal ganglia, periventricular white matter, and each cerebellar hemisphere is stable. No m ass effect or shift of midline structures. IMPRESSION: Chronic type findings are stable. No acute intracranial abnormalities are demonstrated. POS: [facility]
== END 2018-02-20 16:43 | disposition short-term general hospital (02) ==
LOC: MADERS 13:46
DX: I95.9 Hypotension, unspecified (principal); R41.82 Altered mental status, unspecified; F03.90 Unspecified dementia, unspecified severity, without behavioral disturbance, psychotic disturbance, mood disturbance, and anxiety; E78.5 Hyperlipidemia, unspecified; I48.91 Unspecified atrial fibrillation; Z79.82 Long term (current) use of aspirin; Z79.899 Other long term (current) drug therapy
CPT/HCPCS: 36415; 70450; 71045; 80053; 81003; 82553; 83605; 83880; 84484; 85025; 87040; 87086; 93005; 94760; 96361; 96365; 96375; J0696; J7050

== ENCOUNTER 2018-03-21 09:21 | Outpatient (CLI) | payer MEDICARE, OTHER ==
[2018-03-21 10:20] LABS: #Basophils 0.1 thou/uL (0.0-0.2); #Eosinphils 0.4 thou/uL (0.0-0.7); #Lymphocytes 1.6 thou/uL (1.20-3.40); #Monocytes 0.5 thou/uL (0.11-0.59); #Neutrophils 3.2 thou/uL (1.40-6.50); %Basophils 1.2 % (0.0-1.0); %Eosinophils 7.6 % (0.0-10.0); %Lymphocytes 27.1 % (21.0-51.0); %Neutrophils 55.1 % (42.0-75.0); Hemoglobin 13.2 g/dL (14.0-18.0); Mean Corpuscular HGB CONC 33.9 g/dL (32.0-36.0); Mean Corpuscular Hemoglobin 33.4 pg (27.0-31.0); Mean Corpuscular Volume 98.6 fL (78.0-98.0); Mean Platelet Volume 9.5 fL (7.4-10.4); Platelet Count 160 thou/uL (130-400); RBC Distribution Width 12.2 % (11.5-14.5); Red Blood Cell (RBC) Count 3.95 mill/uL (4.70-6.10); White Blood Cell (WBC) Count 5.8 thou/uL (4.8-10.8)
[2018-03-21 10:26] LABS: ALT (SGPT) 15 U/L (8-55); AST (SGOT) 21 U/L (5-34); Albumin 3.5 g/dL (3.4-4.8); Alkaline Phosphatase 74 U/L (40-150); Anion Gap 13 mmol/L (10-20); BUN (Urea Nitrogen) 25 mg/dL (8.4-25.7); Bilirubin, Direct 0.4 mg/dL (0.1-0.3); Calc. Creatinine Clearance 0 mL/min (70-130); Calcium 9.4 mg/dL (7.8-10.44); Carbon Dioxide 20 mmol/L (23-31); Cardiac Risk 3.1 (Less than 4.5); Chloride 115 mmol/L (98-107); Cholesterol 126 mg/dl (< 200 Desired); Estimated GFR-MDRD 44; Glucose 90 mg/dL (83-110); HDL Cholesterol 41 mg/dL (>60 Neg Risk); LDL Cholesterol, Calculated 70 mg/dL; Potassium 4.2 mmol/L (3.5-5.1); Protein, Total 6.2 g/dL (5.8-8.1); Sodium 144 mmol/L (136-145); Triglycerides 75 mg/dL (Less than 150)
== END 2018-03-21 09:22 | disposition home or self-care (01) ==
LOC: MADLAB 09:21
PROVIDERS: ATTEND Family Medicine
DX: N18.3 Chronic kidney disease, stage 3 (moderate) (principal); E78.5 Hyperlipidemia, unspecified; D75.89 Other specified diseases of blood and blood-forming organs
CPT/HCPCS: 36415; 80048; 80061; 80076; 85025

== ENCOUNTER 2018-10-22 12:09 | Outpatient (CLI) | payer MEDICARE, OTHER ==
[2018-10-22 13:01] LABS: Bilirubin Small (Negative); Blood, Urine Negative (Negative); Clarity Clear (Clear); Glucose, Urine (Dipstick) Negative (Negative); Leukocyte Negative (Negative); Nitrite Negative (Negative); Protein, Urine (Dipstick) Negative (Neg-Trace); Specific Gravity, Urine 1.025 (1.005-1.030); Urobilinogen 0.2 mg/dL (0.2-1.0)
== END 2018-10-22 12:10 | disposition home or self-care (01) ==
LOC: MADLABBHPM 12:09
PROVIDERS: ATTEND Family Medicine
DX: R35.0 Frequency of micturition (principal)
CPT/HCPCS: 81001; 87086

== ENCOUNTER 2019-01-18 12:09 | Emergency (ER) | payer MEDICARE, OTHER ==
[~2019-01-18 12:09] MED LIST changes: +Iopamidol 370 76% 100 ML VIAL ONE; -Sodium Chloride 0.9% 1,000 ML BAG ONE
[2019-01-18 13:19] LABS: #Basophils 0.1 thou/uL (0.0-0.2); #Eosinphils 0.2 thou/uL (0.0-0.7); #Lymphocytes 1.3 thou/uL (1.20-3.40); #Monocytes 0.6 thou/uL (0.11-0.59); #Neutrophils 4.5 thou/uL (1.40-6.50); %Eosinophils 2.4 % (0.0-10.0); %Lymphocytes 19.5 % (21.0-51.0); %Monocytes 9.5 % (0.0-10.0); %Neutrophils 67.6 % (42.0-75.0); Mean Corpuscular HGB CONC 33.4 g/dL (32.0-36.0); Mean Corpuscular Hemoglobin 32.1 pg (27.0-31.0); Mean Corpuscular Volume 96.2 fL (78.0-98.0); Mean Platelet Volume 7.7 fL (7.4-10.4); Platelet Count 141 thou/uL (130-400); Red Blood Cell (RBC) Count 3.44 mill/uL (4.70-6.10); White Blood Cell (WBC) Count 6.7 thou/uL (4.8-10.8)
[2019-01-18 13:23] LABS: INR-International Normal Ratio 1.3; Prothrombin Time 16.5 SEC (12.0-14.7)
[2019-01-18 13:34] LABS: ALT (SGPT) 8 U/L (8-55); AST (SGOT) 17 U/L (5-34); Albumin 3.3 g/dL (3.4-4.8); Alkaline Phosphatase 60 U/L (40-150); Anion Gap 13 mmol/L (10-20); BUN (Urea Nitrogen) 23 mg/dL (8.4-25.7); Bilirubin, Total 0.7 mg/dL (0.2-1.2); Calc. Creatinine Clearance 0 mL/min (70-130); Calcium 8.8 mg/dL (7.8-10.44); Carbon Dioxide 22 mmol/L (23-31); Chloride 111 mmol/L (98-107); Estimated GFR-MDRD 41; Globulin 2.4 g/dL (2.4-3.5); Glucose 104 mg/dL (83-110); Potassium 4.5 mmol/L (3.5-5.1); Protein, Total 5.7 g/dL (5.8-8.1); Sodium 141 mmol/L (136-145)
[2019-01-18 14:12] LABS: Bilirubin Negative (Negative); Blood, Urine Negative (Negative); Clarity Clear (Clear); Glucose, Urine (Dipstick) Negative (Negative); Leukocyte Negative (Negative); Nitrite Negative (Negative); Protein, Urine (Dipstick) Negative (Neg-Trace); Urobilinogen 0.2 mg/dL (Less than 2)
--- NOTE | 2019-01-18 14:20 | CT ---
HEAD CT WITHOUT CONTRAST: DATE: 01/18/2019. COMPARISON: 02/20/2018. HISTORY: Fall, trauma, pain. TECHNIQUE: Axial CT imaging at 5 mm intervals from vertex through the skull base without contrast. Coronal and sagittal reformatted imaging obtained. FINDINGS: There is extensive intracranial calcification seen in deep and periventricular white matter as well a s the basal ganglia, thalami, and bilateral cerebellar hemispheres, unchanged when compared to the exam. There is moderate diffuse cerebral volume loss. There is periventricular hypodensity, evidence of sm all-vessel disease. There is no intracranial hemorrhage, midline shift, or mass effect. No displaced calvarial fracture. IMPRESSION: No intracranial hemorrhage. POS: [facility]
--- NOTE | 2019-01-18 14:30 | CT ---
EXAM: Chest abdomen and pelvic CT scanwith IV contrast: Thoracic spine CT scan,limitedwith IV contrast: Lumbar spine CT scan limitedwith IV contrast: HISTORY: Injury from trauma COMPARISON: None FINDINGS: Chest abdomen and pelvis CT: No evidence for pneumothorax. Moderate right pleural effusion. Acute fractures of the right ninth and 10th posterior ribs. Multiple bilateral healed rib fractures. No mediastinal hematoma. The aorta appears unremarkable Right-sided pleural-based parenchymal changes possibly some subsegmental atelectasis or chronic castillo e. Liver:Unremarkable Gallbladder:Unremarkable Pancreas:Unremarkable Spleen:Unremarkable Kidneys:Bilateral renal parapelvic cysts. No intraperitoneal fluid or retroperitoneal hematoma. No evidence for acute fracture or dislocation. IMPRESSION: Evidence of right pleural effusion and displaced fractures of the right ninth and 10th posterior ribs . Thoracic spine CT: IMPRESSION: Severe spondylosis with bony demineralization without overt acute fracture or dislocation. Lumbar spine CT: Severe spondylosis with bony demineralization without overt fracture or dislocation.
== END 2019-01-18 15:25 | disposition home or self-care (01) ==
LOC: MADERS 12:09
DX: S22.41XA Multiple fractures of ribs, right side, initial encounter for closed fracture (principal); F03.90 Unspecified dementia, unspecified severity, without behavioral disturbance, psychotic disturbance, mood disturbance, and anxiety; I48.91 Unspecified atrial fibrillation; E78.5 Hyperlipidemia, unspecified; Z86.73 Personal history of transient ischemic attack (TIA), and cerebral infarction without residual deficits; Z79.899 Other long term (current) drug therapy; Z79.82 Long term (current) use of aspirin; W19.XXXA Unspecified fall, initial encounter
CPT/HCPCS: 70450; 71260; 74177; 80053; 81003; 85025; 85610; Q9967

== ENCOUNTER 2019-06-16 18:00 | Emergency (ER) | payer MEDICARE, OTHER ==
[2019-06-16 18:55] LABS: #Basophils 0.1 thou/uL (0.0-0.2); #Eosinphils 0.1 thou/uL (0.0-0.7); #Lymphocytes 1.4 thou/uL (1.20-3.40); #Monocytes 0.7 thou/uL (0.11-0.59); #Neutrophils 3.3 thou/uL (1.40-6.50); %Lymphocytes 25.6 % (21.0-51.0); %Monocytes 12.1 % (0.0-10.0); %Neutrophils 59.3 % (42.0-75.0); Mean Corpuscular HGB CONC 30.5 g/dL (32.0-36.0); Mean Corpuscular Hemoglobin 27.4 pg (27.0-31.0); Mean Corpuscular Volume 89.7 fL (78.0-98.0); Mean Platelet Volume 7.5 fL (7.4-10.4); Platelet Count 167 thou/uL (130-400); RBC Distribution Width 14.9 % (11.5-14.5); White Blood Cell (WBC) Count 5.5 thou/uL (4.8-10.8)
--- NOTE | 2019-06-16 18:55 | RAD ---
PORTABLE CHEST: 06/16/19 HISTORY: Cough. COMPARISON: 02/20/18 study. The heart size is enlarged. Pulmonary vessels appear mildly engorged. Interstitial markings are incre ased which appear to be largely chronic in nature but some element of edema could be present. There i s blunting to the left costophrenic angle suggesting a small effusion. IMPRESSION: Cardiomegaly with chronic appearing lung changes. I suspect there may be some element of superimposed edema. There is blunting to the left costophrenic angle suggesting a small left effusion. The retroc ardiac region is difficult to assess. If there is suspicion for an underlying retrocardiac infiltrate , then a PA and lateral chest film would be recommended. POS: [facility]
[2019-06-16 19:09] LABS: ALT (SGPT) 9 U/L (8-55); AST (SGOT) 16 U/L (5-34); Albumin 3.4 g/dL (3.4-4.8); Alkaline Phosphatase 56 U/L (40-110); Anion Gap 11 mmol/L (10-20); BUN (Urea Nitrogen) 23 mg/dL (8.4-25.7); Bilirubin, Total 0.3 mg/dL (0.2-1.2); Calc. Creatinine Clearance 0 mL/min (70-130); Calcium 8.4 mg/dL (7.8-10.44); Carbon Dioxide 23 mmol/L (23-31); Chloride 116 mmol/L (98-107); Estimated GFR-MDRD 40; Globulin 2.3 g/dL (2.4-3.5); Glucose 101 mg/dL (83-110); Potassium 4.2 mmol/L (3.5-5.1); Protein, Total 5.7 g/dL (5.8-8.1); Sodium 146 mmol/L (136-145)
[2019-06-16 19:27] LABS: CKMB 2.2 ng/mL (0-6.6)
[2019-06-16] MEDS ORDERED: Furosemide 20 MG/2 ML VIAL ONE (19:42)
[2019-06-16] MEDS ORDERED: Amoxicillin/Potassium Clav 500 MG TAB ONE (19:42)
== END 2019-06-16 20:16 | disposition short-term general hospital (02) ==
LOC: MADERS 18:00
DX: I50.9 Heart failure, unspecified (principal); J18.9 Pneumonia, unspecified organism; I48.91 Unspecified atrial fibrillation; F03.90 Unspecified dementia, unspecified severity, without behavioral disturbance, psychotic disturbance, mood disturbance, and anxiety; I49.9 Cardiac arrhythmia, unspecified; E78.00 Pure hypercholesterolemia, unspecified; E78.5 Hyperlipidemia, unspecified; Z86.73 Personal history of transient ischemic attack (TIA), and cerebral infarction without residual deficits; Z79.899 Other long term (current) drug therapy; Z79.01 Long term (current) use of anticoagulants
CPT/HCPCS: 36415; 71045; 80053; 82553; 83605; 83880; 84484; 85025; 93005; 96374; J1940

== ENCOUNTER 2019-07-12 13:41 | Outpatient (CLI) | payer MEDICARE, OTHER ==
[2019-07-12 15:20] LABS: Anion Gap 14 mmol/L (10-20); BUN (Urea Nitrogen) 23 mg/dL (8.4-25.7); Calc. Creatinine Clearance 0 mL/min (70-130); Calcium 8.6 mg/dL (7.8-10.44); Carbon Dioxide 20 mmol/L (23-31); Chloride 112 mmol/L (98-107); Estimated GFR-MDRD 35; Glucose 92 mg/dL (83-110); Potassium 4.4 mmol/L (3.5-5.1); Sodium 142 mmol/L (136-145)
== END 2019-07-12 13:42 | disposition home or self-care (01) ==
LOC: MADLAB 13:41
PROVIDERS: ATTEND Physician Assistant
DX: I50.23 Acute on chronic systolic (congestive) heart failure (principal); N18.3 Chronic kidney disease, stage 3 (moderate)
CPT/HCPCS: 80048; 83880